=== PATIENT | female | born 2000 | race Two or more races ===

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

== ENCOUNTER 2022-03-31 22:18 | Emergency (ER) | payer MEDICAID ==
[~2022-03-31] VITALS: Ht 154.9 cm; Wt 129.0 kg
[2022-04-01 03:41] VITALS: BP 109/47
== END 2022-04-01 02:52 | disposition home or self-care (01) ==
LOC: ER 22:18
DX: S00.33XA Contusion of nose, initial encounter (principal); Z88.0 Allergy status to penicillin; W22.8XXA Striking against or struck by other objects, initial encounter; Y93.89 Activity, other specified; Y92.89 Other specified places as the place of occurrence of the external cause; Y99.8 Other external cause status